=== PATIENT | male | born 1980 | race Caucasian/White ===

== ENCOUNTER 2018-07-08 17:15 | Emergency (ER) | payer OTHER ==
[~2018-07-08] VITALS: Ht 188 cm; Wt 104.3 kg
[2018-07-08 17:15] VITALS: BP 131/76
--- NOTE | 2018-07-08 18:25 | RAD ---
KNEE RIGHT 4V (AP, oblique, lateral, sunrise) INDICATION: PT HEARD POPPING NOISE, LEG GAVE OUT CAUSING FALL TO BACK. VERY LIMITED IN ABILITY TO BEND LEG. SEVERE PAIN WHEN MOVING LEG. HAS HAD PRIOR INCIDENT OF KNEE WEAKNESS COMPARISON: None. FINDINGS: No acute fracture or malalignment. There appear to be faint calcifications along the proximal patellar tendon. Trace suprapatellar joint effusion. The joint spaces are maintained. Bony mineralization is normal for the patient's age. No significant soft tissue abnormality. No radiopaque foreign body. IMPRESSION: 1. No acute fracture or malalignment. 2. Trace suprapatellar joint effusion. Electronically signed by: Rene Almonte MD (07/08/2018 6:22 PM) [facility]
--- NOTE | 2018-07-08 19:07 | PHYS DOC ---
Adult General Chief Complaint Chief Complaint knee pAIN HPI HPI 38. years old male presented to the emergency department with right knee pain after fall he stated he had a pop in his right knee unable to put any pressure on it very limited range of motion. Patient stated that he had an injury in the past he is seen and evaluated by orthopedic surgeon advised that he could have a ligament problem Review of Systems Review of Systems Constitutional: Denies fever or chills [] Eyes: Denies change in visual acuity, redness, or eye pain [] HENT: Denies nasal congestion or sore throat [] Respiratory: Denies cough or shortness of breath [] Cardiovascular: No additional information not addressed in HPI [] GI: Denies abdominal pain, nausea, vomiting, bloody stools or diarrhea [] : Denies dysuria or hematuria [] Musculoskeletal: Denies back pain Integument: Denies rash or skin lesions [] Neurologic: Denies headache, focal weakness or sensory changes [] Endocrine: Denies polyuria or polydipsia [] All other systems were reviewed and found to be within normal limits, except as documented in this note. Allergies Allergies Allergies Coded Allergies Type Severity Reaction Last Updated Verified No Known Drug Allergies 07/08/18 No Physical Exam Physical Exam Constitutional: Well developed, well nourished, no acute distress, non-toxic appearance. [] HENT: Normocephalic, atraumatic, bilateral external ears normal, oropharynx moist, no oral exudates, nose normal. [] Eyes: PERRLA, EOMI, conjunctiva normal, no discharge. [] Neck: Normal range of motion, no tenderness, supple, no stridor. [] Cardiovascular:Heart rate regular rhythm, no murmur [] Lungs & Thorax: Bilateral breath sounds clear to auscultation [] Abdomen: Bowel sounds normal, soft, no tenderness, no masses, no pulsatile masses. [] Skin: Warm, dry, no erythema, no rash. [] Back: No tenderness, no CVA tenderness. [] Extremities: Right knee is tender to touch Limited range of motion due to pain. [] Neurologic: Alert and oriented X 3, normal motor function, normal sensory function, no focal deficits noted. [] Psychologic: Affect normal, judgement normal, mood normal. [] Current Patient Data Vital Signs Vital Signs Date Time Temp Pulse Resp B/P (MAP) Pulse Ox O2 Delivery O2 Flow Rate FiO2 07/08/18 17:15 98.6 88 18 96 Room Air EKG EKG [] Radiology/Procedures Radiology/Procedures [] Course & Med Decision Making Course & Med Decision Making Pertinent Labs and Imaging studies reviewed. (See chart for details) [] Final Impression Final Impression [] Problems: (1) Right knee sprain Qualifiers: Qualified Codes: S83.401A - Sprain of unspecified collateral ligament of right knee, initial encounter Dragon Disclaimer Dragon Disclaimer This electronic medical record was generated, in whole or in part, using a voice recognition dictation system. VINCENT HERNANDEZ MD Jul 08, 2018 19:07
== END 2018-07-08 19:35 | disposition home or self-care (01) ==
LOC: ER 17:15
DX: S83.91XA Sprain of unspecified site of right knee, initial encounter (principal); W18.30XA Fall on same level, unspecified, initial encounter; Y93.89 Activity, other specified; Y92.89 Other specified places as the place of occurrence of the external cause; Y99.8 Other external cause status
CPT/HCPCS: 29505; 73564; 99283